=== PATIENT | female | born 1995 | race African-American/Black ===

== ENCOUNTER 2021-11-25 10:08 | Outpatient (CLI) | payer BC | END 2021-11-25 10:09 | disposition home or self-care (01) | LOC: CSHLAB 10:08 | PROVIDERS: ATTEND Obstetrics & Gynecology | DX: U07.1 COVID-19 (principal) | CPT/HCPCS: U0003; U0005 ==

== ENCOUNTER 2021-11-28 09:21 | Inpatient (IN) | payer BC ==
[~2021-11-28 09:21] MED LIST: Bupivacaine 0.25% HCL 30 ML VIAL ONE
[2021-11-28] MEDS: Lactated Ringer's 1,000 ML IV SCH (10:20)
[2021-11-28] MEDS ORDERED: Acetaminophen 500 MG TAB PO PRN (11:06)
[2021-11-28] MEDS ORDERED: Ibuprofen 800 MG TAB PO PRN (11:06)
[2021-11-28] MEDS ORDERED: HYDROcodone/Acetaminophen 5/325 mg Tablet PO PRN ×4 (11:06→18:46)
[2021-11-28] MEDS ORDERED: hydrALAZINE 20 MG/ML VIAL SLOW IVP PRN ×2 (11:06→18:46)
[2021-11-28] MEDS ORDERED: Promethazine HCl 25 MG/ML VIAL IM PRN ×2 (11:06→15:12)
[2021-11-28] MEDS ORDERED: Docusate 100 MG CAP PO PRN (11:06)
[2021-11-28] MEDS ORDERED: Diphenoxylate HCl/Atropine Tablet PO PRN ×2 (11:06)
[2021-11-28] MEDS ORDERED: Ondansetron PF 4 MG/2 ML Vial IVP PRN ×3 (11:06→18:46)
[2021-11-28] MEDS ORDERED: Lidocaine 1% (PF) 30 ML VIAL SC PRN (11:06)
[2021-11-28] MEDS ORDERED: Misoprostol 200 MCG TAB PR PRN (11:06)
[2021-11-28] MEDS ORDERED: NS w/ Oxytocin 30 units 500 ML ONE (11:06)
[2021-11-28] MEDS ORDERED: Butorphanol Tartrate 1 MG/ML VIAL SLOW IVP PRN (11:06)
[2021-11-28] MEDS ORDERED: Fentanyl 2 mcg/Bup 0.1% Cadd 100 ML ONE (11:06)
[2021-11-28] MEDS ORDERED: NS w/ Oxytocin 30 units 500 ML IV SCH ×3 (11:15→19:00)
[2021-11-28 11:18] VITALS: BMI 23.0
[2021-11-28 11:22] LABS: Hemoglobin 11.3 g/dL (12.0-15.5); Mean Corpuscular HGB CONC 34.6 g/dL (32.0-36.0); Mean Corpuscular Volume 83.8 fl (81.6-98.3); Mean Platelet Volume 10.4 fl (7.4-10.4); Platelet Count 232 10x3/uL (150-450); RBC Distribution Width 12.1 % (11.5-14.5); White Blood Cell (WBC) Count 11.4 10x3/uL (3.5-10.5)
[2021-11-28 11:51] LABS: HIV (1/2) Antibody/Antigen Non-Reactive (NonReactive); HIV 1/2 INDEX 0.09 S/CO (<1.00); Hep B Surf Ag Non-Reactive S/CO (NonReactive); Syphilis Antibody Nonreactive (Nonreactive); Syphilis Antibody Index 0.04 S/CO (<1.00 Non-Reactive)
[2021-11-28 11:56] LABS: HBSAg Index 0.18 S/CO (0-0.99)
[2021-11-28] MEDS ORDERED: Acetaminophen 325 MG TAB PO PRN (15:12)
[2021-11-28] MEDS ORDERED: Moisturizing Cream (Eucerin) 113 GM JAR TOP PRN (15:12)
[2021-11-28] MEDS ORDERED: Naloxone HCl 0.4 mg/ml Vial IVP PRN ×2 (15:12)
[2021-11-28] MEDS ORDERED: ePHEDrine Sulfate 50 MG/10 ML VIAL SLOW IVP PRN (15:12)
[2021-11-28] MEDS ORDERED: diphenhydrAMINE 50 MG/ML VIAL IVP PRN (15:12)
[2021-11-28] MEDS ORDERED: Communication Order-Pharmacy FS SCH (15:15)
[2021-11-28] MEDS ORDERED: Fentanyl 2 mcg/Bupivacaine 0.1% Cassette 100 ML EPIDURAL SCH (15:15)
[2021-11-28] MEDS ORDERED: Lactated Ringer's 500 ML IV PRN (15:28)
[2021-11-28] MEDS ORDERED: Milk Of Magnesia 30 ML UDCUP PO PRN (18:46)
[2021-11-28] MEDS ORDERED: diphenhydrAMINE 25 MG CAP PO PRN (18:46)
[2021-11-28] MEDS ORDERED: Benzocaine-Menthol 82.5 ML CAN TOP PRN (18:46)
[2021-11-28] MEDS ORDERED: Lanolin Ointment 7 GM TUBE TOP PRN (18:46)
[2021-11-28] MEDS ORDERED: Preparation H Ointment 28 GM TUBE PR PRN (18:46)
[2021-11-28] MEDS ORDERED: Zolpidem Tartrate 5 MG TAB PO PRN (18:46)
[2021-11-28] MEDS ORDERED: Misoprostol 200 MCG TAB VAG PRN (18:46)
[2021-11-28] MEDS ORDERED: Bisacodyl 10 MG SUPP PR PRN (18:46)
[2021-11-28] MEDS ORDERED: Boostrix 0.5 ML (Tdap) VIAL IM ONE (18:46)
[2021-11-28] MEDS: Ibuprofen 800 MG TAB PO SCH (22:30)
[2021-11-29] MEDS: Docusate 100 MG CAP PO SCH ×2 (01:32→14:11)
[2021-11-29] MEDS: Lactated Ringer's 1,000 ML IV SCH (01:56)
[2021-11-29 03:46] LABS: Hemoglobin 10.5 g/dL (12.0-15.5); Mean Corpuscular HGB CONC 35.1 g/dL (32.0-36.0); Mean Corpuscular Hemoglobin 29.4 pg (27.0-33.0); Mean Corpuscular Volume 83.8 fl (81.6-98.3); Mean Platelet Volume 9.9 fl (7.4-10.4); Platelet Count 220 10x3/uL (150-450); RBC Distribution Width 11.9 % (11.5-14.5); Red Blood Cell (RBC) Count 3.57 10x6/uL (3.90-5.03); White Blood Cell (WBC) Count 16.5 10x3/uL (3.5-10.5)
[2021-11-29] MEDS: Ibuprofen 800 MG TAB PO SCH ×3 (05:48→22:00)
[2021-11-29] MEDS ORDERED: Ferrous Sulfate 325 MG TAB PO SCH (08:00)
[2021-11-29] MEDS ORDERED: Prenatal Vitamin 1 TAB PO SCH (09:00)
[2021-11-29 19:47] VITALS: BP 114/62; TEMP 98.7
== END 2021-11-29 23:40 | disposition home or self-care (01) | DRG 805 ==
LOC: CSHLD/OP 09:21 → CSHLD 18:37 → CSHANTE 22:39
PROVIDERS: ADMIT Obstetrics & Gynecology; ATTEND Obstetrics & Gynecology
PROC: 10E0XZZ Delivery of Products of Conception, External Approach (ICD-10-PCS; principal; 2021-11-28)
PROC: 0UQMXZZ Repair Vulva, External Approach (ICD-10-PCS; 2021-11-28)
DX: O98.52 Other viral diseases complicating childbirth (principal); U07.1 COVID-19; Z37.0 Single live birth; D62 Acute posthemorrhagic anemia; Z3A.40 40 weeks gestation of pregnancy; O48.0 Post-term pregnancy; O99.02 Anemia complicating childbirth; O42.02 Full-term premature rupture of membranes, onset of labor within 24 hours of rupture; O71.82 Other specified trauma to perineum and vulva
CPT/HCPCS: 36415; 51702; 85027; 86780; 86850; 86900; 86901; 87340; 87389; 99285; J2590; S0020